=== PATIENT | male | born 1935 | race African-American/Black ===

== ENCOUNTER 2019-12-18 12:48 | Emergency (ER) | payer OTHER ==
[~2019-12-18] VITALS: Ht 180.3 cm; Wt 83.9 kg
--- NOTE | ~2019-12-18 | EMS ---
[address] [address] EMS Patient Care Report Name: MARTA CORONEL Room #: REG MELBA Norman#: [id number] Admission: 12/18/19 Attend Phys: Discharge: Date of : 39 Report #: [id number] THIS REPORT FOR: //name// Report Transmitted: 12/18/2019 13:57 EMS Care Summary [facility] Incident [id number] @ 12/18/2019 11:53 Incident Location [address] [place] [address] Patient MARTA CORONEL Male, 84 Years 1935 Patient Address Patient History Diabetes,Hypertension (HTN), Patient Allergies No known allergies, Patient Medications Tamsulosin, Glyburide, Finasteride, Aspirin, Losartan, Clonazepam, Carvedilol, Rosuvastatin, Meloxicam, Chief Complaint Chest Pressure, Nausea, and weakness Disposition Transported No Lights/[place] Dispatch Reason Heart Problems/AICD Transported To [facility] Narrative Dispatched on chest pain. Upon arrival M3 found the 84 year old male patient AO x4, GCS 15 with normal respirations and skin coloration sitting upright in a kitchen chair. The patient was cool to the touch with some sweating noted. The patient initially stated 7/10 chest pain that had been going on for a few hours. Vitals, ECG monitoring, and 12 LD were obtained. The 12 LD did not [address] [address] EMS Patient Care Report Name: MARTA CORONEL Room #: REG [facility]#: [id number] Admission: 12/18/19 Attend Phys: Discharge: Date of : 39 Report #: [id number] elevation, however the patient's BP was borderline hypotensive. The patient had a strong regular radial pulse. The patient stated a desire to be transported to [facility] ED for evaluation. The patient was assisted while he stood and transferred to the stretcher. The patient was then secured inside the ambulance on the stretcher. IV access was obtained and a fluid bolus administered. Transport was initiated. During transport the patient clarified that he was not currently experiencing any pain but had started to feel warm, nauseated, and substernal chest pressure about two hours ago, while fixing breakfast. The patient stated that he currently was experiencing no symptoms. The patient's BP remained fluid and borderline hypotensive while his heart rhythm remained sinus bradycardia. Upon arrival to [facility] ED the patient was escorted on the stretcher to the ED and patient care transferred to LEXIE Reyna via verbal report. Initial Vitals @12:04P: 65,R: 9,CO: 0,SpO2: 100, @12:17P: 53,R: 6,GCS: 15,SpO2: 99, @12:31P: 52,R: 12,BP: 98/62,Pain: 0/10,GCS: 15,SpO2: 99,Revised Trauma: 12, @12:09P: 66,R: 13,BP: 87/55,Pain: 7/10,GCS: 15,SpO2: 99,Revised Trauma: 11, @12:16P: 53,R: 9,BP: 109/64,Pain: 0/10,GCS: 15,CO: 0,SpO2: 99,Revised Trauma: 10, @12:26P: 51,R: 19,BP: 113/55,Pain: 0/10,GCS: 15,SpO2: 98,Revised Trauma: 12, @12:42P: 49,R: 12,BP: 126/69,Pain: 0/10,GCS: 15,SpO2: 99,Revised Trauma: 12, @12:10R: 16,BP: 88/56,Pain: 7/10,GCS: 15,SpO2: 98,Revised Trauma: 11, Assessments @12:02MENTAL:No Abnormalities,SKIN:No Abnormalities,HEENT:Head/Face: No Abnormalities,Eyes: No Abnormalities,Neck/Airway: No Abnormalities,LUNG SOUNDS:General: No Abnormalities,Left Upper: No Abnormalities,Right Upper: No Abnormalities,Left Lower: No Abnormalities,Right Lower: No Abnormalities,ABDOMEN:General: No Abnormalities,Left Upper: No Abnormalities,Right Upper: No Abnormalities,Left Lower: No Abnormalities,Right Lower: No Abnormalities,PELVIS//GI:No Abnormalities,EXTREMITIES:Left Arm: No Abnormalities,Right Arm: No Abnormalities,Left Leg: No Abnormalities,Right Leg: No Abnormalities,PULSE:Radial: 2+ Normal,NEURO:No Abnormalities,@12:28MENTAL:No Abnormalities,SKIN:No Abnormalities,HEENT:Head/Face: No Abnormalities,Eyes: No Abnormalities,Neck/Airway: No Abnormalities,LUNG SOUNDS:General: No Abnormalities,Left Upper: No Abnormalities,Right Upper: No Abnormalities,Left Lower: No Abnormalities,Right Lower: No Abnormalities,ABDOMEN:General: No Abnormalities,Left Upper: No Abnormalities,Right Upper: No Abnormalities,Left Lower: No Abnormalities,Right Lower: No Abnormalities,PELVIS//GI:No Abnormalities,EXTREMITIES:Left Arm: No Abnormalities,Right Arm: No Abnormalities,Left Leg: No Abnormalities,Right Leg: No [facility] [address] [place] [address] EMS Patient Care Report Name: MARTA CORONEL Room #: REG MELBA Norman#: [id number] Admission: 12/18/19 Attend Phys: Discharge: Date of : 39 Report #: [id number] Abnormalities,PULSE:Radial: 2+ Normal,NEURO:No Abnormalities, Impression Chest Pain / Discomfort Procedures @12:02ALS AssessmentResponse: UnchangedSucceeded@12:28ALS AssessmentResponse: UnchangedSucceeded@12:16Saline Lock 10cc (18 ga) Site: Antecubital-RightResponse: UnchangedSucceeded@12:17Normal Saline (.9% NaCl) 200cc () Site: Antecubital-RightResponse: UnchangedSucceeded@12:0412-Lead ECGResponse: UnchangedSucceeded@12:1712-Lead ECGResponse: UnchangedSucceeded Timeline 11:51,Call Received 11:51,Psap Call 11:53,Dispatched 11:54,En Route 12:01,On Scene 12:02,At Patient 12:02,ALS Assessment,Response: UnchangedSucceeded, 12:04,12-Lead ECG,Response: UnchangedSucceeded, 12:04,BP: / M,PULSE: 65,RR: 9 R,SPO2: 100 Ox,ETCO2: ,BG: ,PAIN: ,GCS: , 12:09,BP: 87/55 M,PULSE: 66,RR: 13 R,SPO2: 99 Ox,ETCO2: ,BG: ,PAIN: 7,GCS: 15, 12:10,BP: 88/56 M,PULSE: ,RR: 16 R,SPO2: 98 Ox,ETCO2: ,BG: ,PAIN: 7,GCS: 15, 12:16,Saline Lock 10cc 18 ga Site: Antecubital-Right,Response: UnchangedSucceeded, 12:16,BP: 109/64 M,PULSE: 53,RR: 9 R,SPO2: 99 Ox,ETCO2: ,BG: ,PAIN: 0,GCS: 15, 12:17,Normal Saline (.9% NaCl) 200cc Site: Antecubital-Right,Response: UnchangedSucceeded, 12:17,12-Lead ECG,Response: UnchangedSucceeded, 12:17,BP: / M,PULSE: 53,RR: 6 R,SPO2: 99 Ox,ETCO2: ,BG: ,PAIN: ,GCS: 15, 12:18,Depart Scene 12:26,BP: 113/55 M,PULSE: 51,RR: 19 R,SPO2: 98 Ox,ETCO2: ,BG: ,PAIN: 0,GCS: 15, 12:28,ALS Assessment,Response: UnchangedSucceeded, 12:31,BP: 98/62 M,PULSE: 52,RR: 12 R,SPO2: 99 Ox,ETCO2: ,BG: ,PAIN: 0,GCS: 15, 12:42,BP: 126/69 M,PULSE: 49,RR: 12 R,SPO2: 99 Ox,ETCO2: ,BG: ,PAIN: 0,GCS: 15, 12:43,At Destination 13:20,Call Closed Disclaimer v1.1 Copyright 2020 [employer] This EMS Care Summary contains data elements from the applicable legal record (which may be displayed differently). It is designed to provide pertinent information for the following purposes: continuity of care, clinical quality, and state data reporting. The complete legal record is available to ED staff and administrators of the receiving hospital in [employer]'s Patient Tracker. All data [facility] [address] [place] [address] EMS Patient Care Report Name: BERNAMARTA Room #: REG MELBA Norman#: [id number] Admission: 12/18/19 Attend Phys: Discharge: Date of : 39 Report #: [id number] is provided "as is."
[2019-12-18] MEDS ORDERED: KLONOPIN0.5 MG PO (13:25)
[2019-12-18] MEDS ORDERED: VITAMIN C1000 MG PO (13:30)
[2019-12-18 13:37] LABS: ABSOLUTE NEUTROPHILS 2.6 thou/uL (1.4-8.2); BASOPHILS 0.4 % (0.0-2.0); EOSINOPHILS 4.5 % (0.0-3.0); HEMATOCRIT 31.5 % (42.0-52.0); HEMOGLOBIN 10.6 gm/dL (14.0-18.0); LYMPHOCYTES 27.8 % (24.0-44.0); MCH 31.6 pg (26.0-34.0); MCHC 33.8 g/dL (28.0-37.0); MCV 93.5 fL (80.0-100.0); MONOCYTES 8.8 % (1.0-8.0); PLATELET COUNT 146 thou/uL (150-400); POLYS 58.5 % (36.0-66.0); RBC 3.37 mil/uL (4.50-6.00); RDW 14.2 % (10.5-14.5); WBC 4.5 thou/uL (4.0-11.0)
[2019-12-18] MEDS ORDERED: CARVEDILOL25 MG PO (13:47)
[2019-12-18 13:48] LABS: ANION GAP 8 mmol/L (7-16); BUN 16 mg/dL (7-18); CALCIUM 8.8 mg/dL (8.5-10.1); CHLORIDE 107 mmol/L (98-107); CO2 28 mmol/L (21-32); CREATININE 1.2 mg/dL (0.7-1.3); GLUCOSE 143 mg/dL (74-106); POTASSIUM 4.2 mmol/L (3.5-5.1); SODIUM 143 mmol/L (136-145)
[2019-12-18] MEDS ORDERED: LATANOPROST 0.2.5 ML (13:48)
[2019-12-18] MEDS ORDERED: ONE TOUCH ULTR1 EACH (13:53)
[2019-12-18 13:56] LABS: ALBUMIN 3.8 g/dL (3.4-5.0); LIPASE 70 U/L (73-393); SGOT 23 U/L (15-37); SGPT 23 U/L (30-65); TOTAL BILIRUBIN 0.7 mg/dL (0.2-1.0); TOTAL PROTEIN 7.3 g/dL (6.4-8.2); TROPONIN-I <0.06 ng/mL (<0.06)
[2019-12-18 17:51] VITALS: BP 144/86
--- NOTE | 2019-12-19 07:46 | EKG ---
[facility] [place] [address] ELECTROCARDIOGRAM REPORT Name: MARTA COROENL Room #: DEP M.R.#: [id number] Admission: 12/18/19 Attend Phys: Discharge: 12/18/19 Date of : 39 Report #: [id number] THIS REPORT FOR: cc: Augustin Blanc MD, David R. MD Lundgren, Craig H. 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
--- NOTE | 2019-12-19 07:48 | EKG ---
[facility] [place] [address] ELECTROCARDIOGRAM REPORT Name: MARTA CORONEL Room #: DEP M.R.#: [id number] Admission: 12/18/19 Attend Phys: Discharge: 12/18/19 Date of : 39 Report #: [id number] THIS REPORT FOR: cc: Augustin Blanc MD, David R. MD Lundgren, Craig H. 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
== END 2019-12-18 17:51 | disposition home or self-care (01) ==
LOC: ER 12:48
PROVIDERS: Emergency Medicine
DX: R10.13 Epigastric pain (principal); R11.0 Nausea; E11.9 Type 2 diabetes mellitus without complications; I10 Essential (primary) hypertension; E78.5 Hyperlipidemia, unspecified; Z79.899 Other long term (current) drug therapy